=== PATIENT | female | born 1975 | race Caucasian/White ===

== ENCOUNTER 2016-12-29 06:44 | Day surgery (SDC) | payer OTHER ==
--- NOTE | 2016-12-28 09:47 | HP ---
DATE OF CLINIC: 12/09/2016 GILLIAN DEMPSEY : 1975 PLANNED PROCEDURE: Left Wrist Dorsal Ganglion Cyst Excision DATE OF SURGERY: December 29, 2016 SURGEON: Mazin Newman M.D. HISTORY OF PRESENT ILLNESS Gillian Dempsey is a 41 year old female. * Medication list reviewed with patient allergy list reviewed with patient. Patient returns to the clinic today for surgery discussion for left dorsal ganglion left wrist cyst. She reports no new concerns. The mass is still present. She is interested in proceeding with surgery at this time. She also has a little bit of paresthesia on the dorsum of the left hand, in the area of the thumb, index and ring finger distribution. After discussion and review of treatment options, both operative and non-operative, she has elected to proceed with surgery and presents today preoperatively. CURRENT MEDICATION * Motrin IB 200 MG Tablet as needed 0 days, 0 refills * Valsartan-Hydrochlorothiazide 320-12.5 MG Tablet TAKE ONE TABLET BY MOUTH ONCE DAILY, 30 days, 1 refills PAST MEDICAL/SURGICAL HISTORY Reported: Medical: Reported numbness, Reported tingling, Hypertension, Fainting, Anemia, and Vertigo. Surgical / Procedural: Prior surgery Laproscopy 1989. Diagnoses: Hypertension Reports history of smoking and htn (medicated) hx of gastric bypass. Surgical: * Tonsillectomy 15yrs ago around 1999 * Laparoscopic cholecystectomy pt was around 15yrs old * Hysterectomy 2003 SOCIAL HISTORY Behavioral: Caffeine use black coffee and tea, current smoker 1/2 pack per day for 20 years + off and on, and smoking status: Current everyday smoker. Alcohol: Alcohol 1-2 drinks a month and alcohol use a glass of wine now and then. Drug Use: Drug use. Home Environment: Lives with spouse and children. Work: [employer]; [employer]. Travel: Travel, from [place] 04/2014. * SBIRT Screening Performed* SBIRT Screening Results Negative ALLERGIES * Codeine Reaction: Sensitivity (groggy) mild reaction * Latex Reaction: adhesive tape with latex / rash - skin raw - but can use latex gloves without reaction FAMILY HISTORY Father 68 years old Mother 68 years old 3 children living Non contributory Paternal: Coronary artery disease Pt's dad had to get stent placed in Maternal Aunt [place] Hypertension Diabetes mellitus Dad is Hypoglycemic Cancer Paternal grandfather of lung and stomache cancer Maternal: Coronary artery disease Maternal uncle has heart issues believes is AFFIB Mother has recently been Dx with Aortic stenosis Hypertension Diabetes mellitus Mom is Hyperglycemic Cancer Maternal grandmother had stomache cancer and from this Family medical history Mother: Diabetes, HBP Fatther: Diabetes, HBP REVIEW OF SYSTEMS No recent constitutional symptoms to include fevers and chills. No cardiovascular symptoms to include chest pain or palpitations. No respiratory symptoms to include shortness of breath or recent infections. PHYSICAL FINDINGS * Vitals taken 12/09/2016 02:26 pm BP-Sitting R 123/64 mmHg Pulse Rate-Sitting 75 bpm Temp-Oral 98.4 F Height 64 in Weight 149 lbs Body Mass Index 25.6 kg/m2 Body Surface Area 1.73 m2 Pain Level 2 Pain Level Note 2-12/09 Ears, Nose, Throat: * ENT: normal. Lungs: * Clear to auscultation. Cardiovascular: Heart Rate and Rhythm: * Normal. Abdomen: * Normal. Neurological: Motor: * Dominant Hand = Right Hand. GENERAL: Patient is alert and oriented and in no acute distress. Ambulates in on her own. LEFT UPPER EXTREMITY / WRIST EXAM: She has a dorsal radial bilobed appearing ganglion cyst that measures 1 cm x 2cm in size. It is non-mobile. It is semi-firm. Wrist flexion and extension are intact today. DPC of the fingers is 0. Thumb eodkg-mb-lbkjen intact. Sensation to light touch intact throughout all fingers today. ASSESSMENT Left wrist ganglion cyst PREVIOUS TESTS * Test: COMPREHENSIVE METABOLIC PANEL Report Date: 11/25/2016 ALT/SGPT 9 U/L ALBUMIN 3.9 g/dL ALB/GLOB RATIO 2.1 BUN 8 mg/dL BUN/CREAT RATIO 16 CALCIUM 9.1 mg/dL GLUCOSE 94 mg/dL CREATININE 0.5 mg/dL Low SODIUM 137 meq/L POTASSIUM 3.7 meq/L CHLORIDE 104 meq/L CARBON DIOXIDE 30 meq/L ANION GAP 7 meq/L Low TOT PROTEIN 5.8 g/dL Low GLOBULIN 1.9 g/dL Low BILI,TOTAL 0.7 mg/dL AST/SGOT 13 U/L ALK PHOSPHATASE 40 U/L GFR 135 High * Test: LIPID PROFILE Report Date: 11/25/2016 HDL CHOLESTEROL 56 mg/dL VLDL CHOL 9 mg/dL Low CHOLESTEROL 171 mg/dL TRIGLYCERIDES 47 mg/dL LDL CHOLESTEROL 106 mg/dL RISK RATIO 3.1 Low THERAPY * Patient not eligible for fall risk assessment. PLAN * Ganglion, left wrist Percocet 5-325 MG TABS, Take 1-2 tablets by mouth every 6 hours as needed for pain, 14 days, 0 refills Left wrist dorsal ganglion cyst excision. CARE TEAM Gloria Christina MD [facility] SURGICAL CONSENT We have discussed surgical options including left wrist dorsal ganglion cyst excision and non-operative management. The patient was counseled in detail regarding the diagnosis, treatment options available, prognosis of each treatment option and the potential risks and complications. The risks of surgery include, but are not limited to, anesthetic , neurovascular complications, pulmonary embolism, deep vein thrombosis, wound dehiscence, failure of any or all of the discussed procedures, infection of the joint or surrounding soft tissue, need for revision surgery, chronic pain, limitations in activities of daily living, inability to return to work, and loss of normal range of motion or functional use of the extremity. There is the possibility of failure over time that may require additional operative or non-operative treatment. The patient acknowledged that there are a number of perioperative risks not mentioned here and would still like to proceed. The patient is aware of and understands these risks, and wishes to proceed with the proposed surgical procedure and other procedures as indicated at the time of surgery. We will have the patient see their PCP for a preoperative medical risk assessment. The preoperative instructions were reviewed with the patient and all questions were answered. PB/sg
[2016-12-29] MEDS ORDERED: CEFAZOLIN SODIUM 2 GRAM PREMIX 100 ML IV PRN (06:45)
[2016-12-29] MEDS ORDERED: IV START KIT ONE ×2 (06:48→06:50)
[2016-12-29] MEDS ORDERED: LACTATED RINGERS 1,000 ML ONE (06:48)
[2016-12-29] MEDS ORDERED: CEFAZOLIN SODIUM 2 GRAM PREMIX 100 ML IV ONE (06:48)
[2016-12-29] MEDS ORDERED: MIDAZOLAM HCL 1 MG/ML 2ML VIAL ONE (07:58)
[2016-12-29] MEDS ORDERED: FENTANYL 100 MCG/2 ML VIAL ONE (07:58)
[2016-12-29] MEDS ORDERED: LIDOCAINE 0.5% (PRES FREE) 50 ML VIAL ONE (08:35)
[2016-12-29] MEDS ORDERED: BUPIVACAINE 0.5% W/EPI SDV 30 ML VIAL ONE (08:59)
[2016-12-29] MEDS ORDERED: PROPOFOL 20 ML IV ONE (09:05)
--- NOTE | 2016-12-29 09:32 | PCMBPN ---
Brief Post Op Note: Date of Procedure: 12/29/16 Start Time: 0830 Preoperative Diagnosis: 1. left dorsal wrist ganglion Postoperative Diagnosis: 1. Same Procedure: left wrist ganglion excision Surgeon: Mazin Newman MD Assist: none Anesthesia: Tim Lester Findings: as above Condition: stable to PACU Complications: none IV Fluids: 700 mLs of LR Urine Output: 0 mLs Estimated Blood Loss: 5 mLs Tourniquet Time: 30 minutes at 250 mm Hg Specimens: dorsal wrist mass Implants: none Drains: none Mazin Newman MD
[2016-12-29] MEDS ORDERED: ONDANSETRON 4 MG/2ML 2 ML VIAL IV PRN (09:48)
[2016-12-29] MEDS ORDERED: LACTATED RINGERS 1,000 ML IV SCH (09:48)
[2016-12-29] MEDS ORDERED: DIPHENHYDRAMINE HCL 50 MG/1 ML VIAL IV PRN (09:48)
[2016-12-29] MEDS ORDERED: HYDROMORPHONE HCL 1 MG/ML SYRINGE IV PRN (09:48)
[2016-12-29] MEDS ORDERED: ACETAMINOPHEN 325 MG TABLET PO PRN (09:48)
[2016-12-29] MEDS ORDERED: OXYCODONE/ACETAMINOPHEN 5/325 MG TABLET PO PRN (09:48)
--- NOTE | 2016-12-30 08:25 | OP ---
Gillian GRIER : 1975 [id number] DATE OF PROCEDURE: December 29, 2016 PREOPERATIVE DIAGNOSIS: Left dorsal wrist ganglion. POSTOPERATIVE DIAGNOSIS: Left dorsal wrist ganglion. PROCEDURE PERFORMED: LEFT WRIST GANGLION EXCISION. SURGEON: Mazni Newman M.D. [employer] ADVISOR: None. ANESTHESIA: By Tim Lester C.R.N.A. SPECIMENS: Material sent to the laboratory was a left dorsal wrist mass. ESTIMATED BLOOD LOSS: 5 mL. FLUIDS REPLACED: 700 mL crystalloid. TOURNIQUET TIME: 30 minutes at 250 mmHg for a [place] block. IMPLANTS: None. DRAINS: None. INDICATIONS: A 41-year-old female with a persistent mass over her dorsal left wrist that causes pain when she goes into extension. She has tried activity modification, bracing and anti-inflammatories without relief of her symptoms and desires a definitive management in the form of surgical removal. DESCRIPTION OF PROCEDURE: The patient was identified in the preoperative holding area marked with an indelible marker by the operating surgeon. She was taken to the operating room where she was placed in the supine position on the operating room table with her hand extended on the hand table. A Alesha block anesthesia was administered by the anesthesia providers and she received perioperative antibiotics. She was prepped and draped in the usual sterile fashion for surgery. Operative time out was performed and confirmed by all members of the operative team. A longitudinal incision was made overlying the dorsal wrist mass approximately 2 cm in length. Blunt dissection was carried down around the loculated cyst and following it all the way down to a stock that originated from the dorsal wrist capsule. The mass was excised en bloc with this the stock and a small window of the dorsal wrist capsule. No neurovascular structures or tendons were injured during the procedure. The wound was copiously irrigated with sterile saline, closed with Monocryl in the skin and a sterile dressing was placed. The tourniquet was deflated, the drapes were removed. The patient was transferred to a stretcher and taken postoperatively to the postanesthesia care unit in stable condition. There were no observed intraoperative complications during this procedure. Job [id number] Cc: [facility]
--- NOTE | 2017-01-02 13:29 | SURGPATH ---
[facility] [address] [place] [id number] Patient Name: GUILLERMO GRIER MR#: [id number] : 1975 Gender: F Specimen #: [id number] Collected: 12/29/2016 Received: 12/30/2016 Reported: 01/02/2017 Submitting Phys: DI ROSE Copy To Phys: [facility] MARCI CHARLES Clinical History / Pre-Operative Diagnosis: Left WRIST dorsal ganglion cyst Specimen Source / Surgical Procedure Performed: Ganglion cyst Interpretation: LEFT WRIST, EXCISION: - GANGLION CYST Electronically Signed Out Garrett Perez M.D. Gross Description: The specimen is received in formalin labeled with the patient's name and "ganglion cyst". The specimen consists of a 2.0 x 1.5 x 0.5 cm portion of campbell soft tissue. The specimen is marked with black ink and entirely submitted one cassette. ROSA Chauhdry Microscopic Description: Microscopic performed. 1: [id number]
== END 2016-12-29 10:12 | disposition home or self-care (01) ==
LOC: SDC 06:44
PROVIDERS: ATTEND Orthopaedic Surgery
PROC: 0RBP0ZZ Excision of Left Wrist Joint, Open Approach (ICD-10-PCS; principal; 2016-12-29)
DX: M67.432 Ganglion, left wrist (principal); I10 Essential (primary) hypertension; Z72.0 Tobacco use; Z98.84 Bariatric surgery status; Z88.5 Allergy status to narcotic agent; Z91.040 Latex allergy status